=== PATIENT | male | born 1955 | race Caucasian/White ===

== ENCOUNTER 2017-07-16 22:36 | Observation (INO) | payer MEDICARE, OTHER ==
[~2017-07-16] VITALS: Ht 175.3 cm; Wt 67.0 kg
[2017-07-16 22:37] VITALS: BP 125/72; PULSE 75; RESP 16; TEMP 97.8; O2SAT 99
[2017-07-16] MEDS ORDERED: METF1000 PO (22:59)
--- NOTE | 2017-07-16 23:11 | PD ---
HPI Chief Complaint: Edema Time Seen by Provider: 23:11 Travel History International Travel<30 days: No Contact w/Intl Traveler<30days: No Traveled to known affect area: No History of Present Illness HPI 61-year-old male came to the emergency room for bilateral swelling of his legs called the right is worse than the left. As per him this has been going on for past 3 days. Patient says that this is also associated with some tingling of both his feet. He has history of diabetes and has had peripheral neuropathy for which he was put on gabapentin. Currently does not have a primary care and is not taking the gabapentin. He is only on metformin. No history of fever or chills. No history of shortness of breath. Patient is a heavy smoker and has history of COPD. Vital signs were stable. No past history of DVT or PE. Patient does have history of coronary artery disease and had a stent put in 3-4 years ago. He takes 1 baby aspirin every day. PFSH Past Medical History Narrative Medical List of his past medical, surgical, social and family history is reviewed from the nursing note. Cardiac Catheterization: Yes (cardiac stents) COPD: Yes Diabetes: Yes Patient Takes Glucophage: No (07/14/2017 0900) Diminished Hearing: No Medical other: Yes (neuropathy) Tetanus Vaccination: Unknown Influenza Vaccination: No Social History Alcohol Use: No Tobacco Use: Yes Substance Use: No Allergies-Medications (Allergen,Severity, Reaction): Coded Allergies: No Known Allergies (Verified , 07/16/17) Comments No known drug allergies. Reported Meds & Prescriptions Reported Meds & Active Scripts Active Narrative Medication List of his home medications reviewed from the nursing note. Review of Systems Except as stated in HPI: all other systems reviewed are Neg Physical Exam Narrative GENERAL: Awake, alert, mild distress SKIN: Focused skin assessment warm/dry. HEAD: Atraumatic. Normocephalic. EYES: Pupils equal and round. No scleral icterus. No injection or drainage. ENT: No nasal bleeding or discharge. Mucous membranes pink and moist. NECK: Trachea midline. No JVD. CARDIOVASCULAR: Regular rate and rhythm. No murmur appreciated. RESPIRATORY: No accessory muscle use. Coarse breath sounds bilaterally with end expiratory wheeze. GASTROINTESTINAL: Abdomen soft, non-tender, nondistended. Hepatic and splenic margins not palpable. MUSCULOSKELETAL: No obvious deformities. No clubbing. No cyanosis. Right 1+ leg edema midshin and distal up to the feet. NEUROLOGICAL: Awake and alert. No obvious cranial nerve deficits. Motor grossly within normal limits. Normal speech. PSYCHIATRIC: Appropriate mood and affect; insight and judgment normal. Data Data Last Documented VS Orders Orders Complete Blood Count With Diff (07/16/17 23:14) Basic Metabolic Panel (Bmp) (07/16/17 23:14) Prothrombin Time / Inr (Pt) (07/16/17 23:14) Troponin I (07/16/17 23:14) Electrocardiogram (07/16/17 ) Heavy Truck Driver / Telemetry SMITH.Q8H (07/16/17 23:14) Us Leg Venous Doppler Bilat (07/16/17 ) Albuterol-Ipratropium Neb (Duoneb Neb) (07/16/17 23:30) B-Type Natriuretic Peptide (07/17/17 00:15) Chest, Single Ap (07/17/17 ) Insulin Human Regular Inj (Novolin R Inj (07/17/17 00:30) Blood Glucose (07/17/17 00:26) Insulin Human Regular Inj (Novolin R Inj (07/17/17 00:45) Admit Order (Ed Use Only) (07/17/17 01:18) Labs Laboratory Tests Test 07/16/17 23:35 07/17/17 00:25 White Blood Count 6.9 TH/MM3 Red Blood Count 4.46 MIL/MM3 Hemoglobin 13.3 GM/DL Hematocrit 37.4 % Mean Corpuscular Volume 84.0 FL Mean Corpuscular Hemoglobin 29.9 PG Mean Corpuscular Hemoglobin Concent 35.6 % Red Cell Distribution Width 13.4 % Platelet Count 145 TH/MM3 Mean Platelet Volume 8.0 FL Neutrophils (%) (Auto) 47.0 % Lymphocytes (%) (Auto) 42.8 % Monocytes (%) (Auto) 6.2 % Eosinophils (%) (Auto) 2.6 % Basophils (%) (Auto) 1.4 % Neutrophils # (Auto) 3.2 TH/MM3 Lymphocytes # (Auto) 2.9 TH/MM3 Monocytes # (Auto) 0.4 TH/MM3 Eosinophils # (Auto) 0.2 TH/MM3 Basophils # (Auto) 0.1 TH/MM3 CBC Comment DIFF FINAL Differential Comment Prothrombin Time 11.4 SEC Prothromb Time International Ratio 1.0 RATIO Blood Urea Nitrogen 8 MG/DL Creatinine 0.81 MG/DL Random Glucose 336 MG/DL Calcium Level 8.4 MG/DL Sodium Level 138 MEQ/L Potassium Level 4.0 MEQ/L Chloride Level 101 MEQ/L Carbon Dioxide Level 28.3 MEQ/L Anion Gap 9 MEQ/L Estimat Glomerular Filtration Rate 97 ML/MIN Troponin I 0.06 NG/ML B-Type Natriuretic Peptide 122 PG/ML MDM Medical Decision Making Medical Screen Exam Complete: Yes Emergency Medical Condition: Yes Medical Record Reviewed: Yes Interpretation(s) Twelve-lead EKG was reviewed by me. Normal sinus rhythm, normal axis, lateral T wave inversions. Heart rate of 71 bpm. Differential Diagnosis Congestive heart failure, DVT, dependent edema Narrative Course 11:24 PM awaiting for the blood test and ultrasound to be done and resulted. I have ordered 2 DuoNeb's for the patient. 12:18 AM blood test results of back. Patient's troponin is mildly elevated. Blood sugar is elevated as well. I have ordered 10 units of subcutaneous insulin. I have ordered a chest x-ray as well. Awaiting for the chest x-ray and the ultrasound to be done and resulted. Patient needs to be hospitalized based on the elevated troponin alone. Awaiting for the hospitalist to call back. Patient was made aware of this. He is in agreement. Procedures EKG Prior to Arrival: No Diagnosis Primary Impression: Shortness of breath Additional Impressions: Elevated troponin I level Hyperglycemia Admitting Information Admitting Physician Requests: Admit Scripts Carefine [place] 31G X 8 mm (Carefine [place] 31G X 8 mm) 31 Gauge X 5/ 16" Mis BOX .ROUTE DIRECTED for Blood Sugar Management, #1 0 Refills Prov: Eusebio Perera MD 07/19/17 [employer] Insulin Syringes/ 31G X 5/16" 0.5 ml ([employer] Insulin Syringes/ 31G X 5/ 16" 0.5 ml) 31 Gauge X 5/16" Mis BOX .ROUTE DIRECTED for Blood Sugar Management, #180 Prov: Eusebio Perera MD 07/19/17 Blood Glucose Monitoring Supply (Trueresult Blood Glucose) System Kit KIT .ROUTE DIRECTED for Blood Sugar Management, #1 0 Refills Prov: Eusebio Perera MD 07/19/17 Blood Glucose Monitoring W/Device (Glucocom Blood Glucose Mo W/Device) 1 Kit Kit KIT .ROUTE DIRECTED for Blood Sugar Management, #1 Prov: Eusebio Perera MD 07/19/17 Glucocom Test Strips (Glucocom Test Strips) 1 Marilee Marilee EA .ROUTE DIRECTED for Blood Sugar Management, #180 Prov: Eusebio Perera MD 07/19/17 Insulin Human Isophane-Regular 70-30 Inj (Novolin 70-30 Inj) 1,000 Unit/10 Ml Vial 10 UNITS SQ BID@ for Blood Sugar Management, #60 INJECTION 11 Refills Prov: Eusebio Perera MD 07/19/[address] (Adult Aspirin EC Low Strength) 81 Mg Tabec 81 MG PO DAILY for Prevent Blood Clot, #30 TAB Prov: Eusebio Perera MD 07/19/17 Lisinopril (Lisinopril) 10 Mg Tab 10 MG PO DAILY for Blood Pressure Management, #30 TAB 11 Refills Prov: Eusebio Peerra MD 07/19/17 Pravastatin (Pravachol) 40 Mg Tab 40 MG PO DAILY for Cholesterol Management, #30 TAB 11 Refills Prov: Eusebio Perera MD 07/19/17 Metformin (Metformin) 1,000 Mg Tab 1000 MG PO BIDPC for Blood Sugar Management, #60 TAB 11 Refills With meals Prov: Eusebio Perera MD 07/19/17 Christie Jorgensen MD Jul 16, 2017 23:11
[2017-07-16 23:46] LABS: AUTOMATED NEUTROPHIL # 3.2 TH/MM3 (1.8-7.7); BASOPHIL # 0.1 TH/MM3 (0-0.2); BASOPHIL % 1.4 % (0.0-2.0); EOSINOPHIL # 0.2 TH/MM3 (0-0.4); EOSINOPHIL % 2.6 % (0.0-4.0); HEMATOCRIT 37.4 % (39.0-51.0); HEMO FLAGS DIFF FINAL; LYMPH % 42.8 % (9.0-44.0); LYMPHOCYTE # 2.9 TH/MM3 (1.0-4.8); MEAN CORPUSCULAR HEMOGLOBIN 29.9 PG (27.0-34.0); MEAN CORPUSCULAR HGB CONC 35.6 % (32.0-36.0); MONO % 6.2 % (0.0-8.0); PLATELET COUNT 145 TH/MM3 (150-450); RED BLOOD COUNT 4.46 MIL/MM3 (4.50-5.90); RED CELL DISTRIBUTION WIDTH 13.4 % (11.6-17.2); WHITE BLOOD COUNT 6.9 TH/MM3 (4.0-11.0)
[2017-07-16 23:53] LABS: PROTHROMBIN TIME - PATIENT 11.4 SEC (9.8-11.6)
[2017-07-17] VITALS (8 sets, daily range): BP systolic 102–153; BP diastolic 51–84; PULSE 68–93; RESP 16–18; TEMP 96.5–98.7; O2SAT 95–100
[2017-07-17] MEDS: RESP: ALBUTEROL 2.5 MG/IPRATROPIUM 0.5 MG NEB (SCH) INH (00:02)
[2017-07-17 00:08] LABS: BICARBONATE 28.3 MEQ/L (21.0-32.0)
[2017-07-17] MEDS ORDERED: INSULIN HUMAN REGULAR 1,000 UNITS/10 ML VIAL SQ ONE ×2 (00:30→00:45)
--- NOTE | 2017-07-17 00:35 | RADRPT ---
EXAM DATE/TIME: 07/17/2017 00:27 [facility] COMPARISON: No previous studies available for comparison. INDICATIONS : Shortness of breath. MEDICAL HISTORY : Chronic obstructive pulmonary disease. Diabetes mellitus type II. SURGICAL HISTORY : Cardiac stent. ENCOUNTER: Initial ACUITY: 3 weeks PAIN SCORE: 0/10 LOCATION: Bilateral chest FINDINGS: A single view of the chest demonstrates the lungs to be symmetrically aerated without evidence of mas s, infiltrate or effusion. The cardiomediastinal contours are unremarkable. Osseous structures are intact. CONCLUSION: No acute disease. Hilton Egan MD on July 17, 2017 at 0:33 Board Certified Radiologist. This report was verified electronically.
--- NOTE | 2017-07-17 01:12 | RADRPT ---
EXAM DATE/TIME: 07/17/2017 00:48 [facility] COMPARISON: No previous studies available for comparison. INDICATIONS : Bilateral leg swelling and pain. MEDICAL HISTORY : Chronic obstructive pulmonary disease. Coronary artery disease. Peripheral neuropathy. Diabetes. An ticoagulant therapy. SURGICAL HISTORY : Coronary artery stent. ENCOUNTER: Initial ACUITY: 3 days PAIN SCORE: 4/10 LOCATION: Bilateral legs. TECHNIQUE: Venous ultrasound of the left and right leg was performed from the inguinal ligament to the proximal calf. Real-time, color Doppler and spectral tracing, compression and augmentation techniques were us ed. FINDINGS: RIGHT LEG: There is normal compressibility of the deep venous system from the inguinal region to the proximal ca lf. No echogenic clot is seen in the lumen of the common femoral, femoral, popliteal, and posterior tibial veins. There is a normal response of the venous system to proximal and distal augmentation an d respiration. LEFT LEG: There is normal compressibility of the deep venous system from the inguinal region to the proximal ca lf. No echogenic clot is seen in the lumen of the common femoral, femoral, popliteal, and posterior tibial veins. There is a normal response of the venous system to proximal and distal augmentation an d respiration. CONCLUSION: Normal examination. Hilton Egan MD on July 17, 2017 at 1:10 Board Certified Radiologist. This report was verified electronically.
[2017-07-17] MEDS ORDERED: SENNOSIDES 8.6 MG TAB PO PRN (01:30)
[2017-07-17] MEDS ORDERED: LACTULOSE SYRUP 20 GM/30 ML CUP PO PRN (01:30)
[2017-07-17] MEDS ORDERED: ONDANSETRON HCL 4 MG/2 ML VIAL IVP PRN (01:30)
[2017-07-17] MEDS ORDERED: RESP: ALBUTEROL 2.5 MG/IPRATROPIUM 0.5 MG NEB (PRN) NEB (01:30)
[2017-07-17] MEDS ORDERED: ACETAMINOPHEN/HYDROcodone 325 MG/5 MG TAB PO PRN (01:30)
[2017-07-17] MEDS ORDERED: BISACODYL 10 MG SUPP RECTAL PRN (01:30)
[2017-07-17] MEDS ORDERED: NITROGLYCERIN 2% OINT 1 GM PACKET TOPICAL PRN (01:30)
[2017-07-17] MEDS ORDERED: GLUCAGON 1 MG/ML VIAL OTHER PRN (01:30)
[2017-07-17] MEDS ORDERED: MAGNESIUM HYDROXIDE SUSP 30 ML CUP PO PRN (01:30)
[2017-07-17] MEDS ORDERED: DEXTROSE 50% IN WATER 50 ML VIAL(D50) IV PRN (01:30)
[2017-07-17] MEDS ORDERED: MORPHINE SULFATE 4 MG/ML INJ IV PRN (01:30)
[2017-07-17] MEDS ORDERED: SODIUM CHLORIDE 0.9% FLUSH 10 ML FLUSH IV FLUSH PRN (01:30)
--- NOTE | 2017-07-17 02:33 | HHI.HP ---
[facility] No Primary Care Physician Admission Diagnosis DYSPNEA,ELEVATED TROP Diagnoses: (1) Lower extremity edema Diagnosis: Principal (2) Elevated troponin Diagnosis: Principal (3) HTN (hypertension) Diagnosis: Principal (4) COPD (chronic obstructive pulmonary disease) Diagnosis: Principal (5) Thrombocytopenia Diagnosis: Principal (6) Tobacco abuse Diagnosis: Principal Travel History International Travel<30 Days: No Contact w/Intl Traveler <30 Da: No Traveled to Known Affected Are: No History of Present Illness This is a 61-year-old male with a PMH of HTN, CAD, COPD, DM, Peripheral Neuropathy and Tobacco Abuse who presented to the ER with complaints of bilateral lower extremity edema and intermittent SOB x3 days. Denies fever, chills, cough or sick contacts. No c/o chest pain. Denies h/o similar symptoms in the past. On arrival, BP 125/72, HR 75, O2 sat 99% on RA, Afebrile. CBC essentially unremarkable except for platelets 145, no previous labs for comparison. Chemistry essentially unremarkable except for BS 336. Troponin 0.06. BNP 122. 1.0. CXR with no acute findings. LE Doppler negative for DVT. Noted to have mild wheezing while in ER, s/p DuoNeb w/ improvement. Review of Systems Except as stated in HPI: all other systems reviewed are Neg ROS: 14 point review of systems otherwise negative. Past Family Social History Past Medical History PMH: HTN, CAD, COPD, DM, Peripheral Neuropathy and Tobacco Abuse Past Surgical History PAST SURGICAL HISTORY: Cardiac stent Allergies: Coded Allergies: No Known Allergies (Verified , 07/16/17) Family History PAST FAMILY HISTORY: Reviewed, positive for DM. Social History PAST SOCIAL HISTORY: Negative for alcohol or drugs. Positive for tobacco. Physical Exam Vital Signs Vital Signs Date Time Temp Pulse Resp B/P (MAP) Pulse Ox O2 Delivery O2 Flow Rate FiO2 07/16/17 22:37 97.8 75 16 125/72 (89) 99 Room Air Physical Exam PE: GENERAL: Middle-aged male in no acute distress. HEENT: PERRLA, EOMI. No scleral icterus or conjunctival pallor. No lid lag or facial droop. CARDIOVASCULAR: Regular rate and rhythm. No obvious murmurs to auscultation. No chest tenderness to palpation. RESPIRATORY: No obvious rhonchi or wheezing. Clear to auscultation. Breath sounds equal bilaterally. GASTROINTESTINAL: Abdomen soft, non-tender, nondistended. BS normal. MUSCULOSKELETAL: Extremities without clubbing, cyanosis. Bilateral lower extremity edema, right greater than left. No obvious deformities. NEUROLOGICAL: Awake, alert and oriented x4. No focal neurologic deficits. Moving both upper and lower extremities spontaneously. Laboratory Laboratory Tests Test 07/16/17 23:35 07/17/17 00:25 White Blood Count 6.9 Red Blood Count 4.46 Hemoglobin 13.3 Hematocrit 37.4 Mean Corpuscular Volume 84.0 Mean Corpuscular Hemoglobin 29.9 Mean Corpuscular Hemoglobin Concent 35.6 Red Cell Distribution Width 13.4 Platelet Count 145 Mean Platelet Volume 8.0 Neutrophils (%) (Auto) 47.0 Lymphocytes (%) (Auto) 42.8 Monocytes (%) (Auto) 6.2 Eosinophils (%) (Auto) 2.6 Basophils (%) (Auto) 1.4 Neutrophils # (Auto) 3.2 Lymphocytes # (Auto) 2.9 Monocytes # (Auto) 0.4 Eosinophils # (Auto) 0.2 Basophils # (Auto) 0.1 CBC Comment DIFF FINAL Differential Comment Prothrombin Time 11.4 Prothromb Time International Ratio 1.0 Blood Urea Nitrogen 8 Creatinine 0.81 Random Glucose 336 Calcium Level 8.4 Sodium Level 138 Potassium Level 4.0 Chloride Level 101 Carbon Dioxide Level 28.3 Anion Gap 9 Estimat Glomerular Filtration Rate 97 Troponin I 0.06 B-Type Natriuretic Peptide 122 Result Diagram: 07/16/17233407/16/172334 Caprini VTE Risk Assessment Caprini VTE Risk Assessment: No/Low Risk (score <= 1) Caprini Risk Assessment Model Point Value = 1 Point Value = 2 Point Value = 3 Point Value = 5 Age 41-60 Minor surgery BMI > 25 kg/m2 Swollen legs Varicose veins or History of unexplained or recurrent spontaneous Oral contraceptives or hormone replacement Sepsis (< 1 month) Serious lung disease, including pneumonia (< 1 month) Abnormal pulmonary function Acute myocardial infarction Congestive heart failure (< 1 month) History of inflammatory bowel disease Medical patient at bed rest Age 61-74 Arthroscopic surgery Major open surgery (> 45 min) Laparoscopic surgery (> 45 min) Malignancy Confined to bed (> 72 hours) Immobilizing plaster cast Central venous access Age >= 75 History of VTE Family history of VTE Factor V Leiden Prothrombin [id number] Lupus anticoagulant Anticardiolipin antibodies Elevated serum homocysteine Heparin-induced thrombocytopenia Other congenital or acquired thrombophilia Stroke (< 1 month) Elective arthroplasty Hip, pelvis, or leg fracture Acute spinal cord injury (< 1 month) Prophylaxis Regimen Total Risk Factor Score Risk Level Prophylaxis Regimen 0-1 Low Early ambulation 2 Moderate Order ONE of the following: *Sequential Compression Device (SCD) *Heparin 5000 units SQ BID 3-4 Higher Order ONE of the following medications: *Heparin 5000 units SQ TID *Enoxaparin/Lovenox 40 mg SQ daily (WT < 150 kg, CrCl > 30 mL/min) *Enoxaparin/Lovenox 30 mg SQ daily (WT < 150 kg, CrCl > 10-29 mL/min) *Enoxaparin/Lovenox 30 mg SQ BID (WT < 150 kg, CrCl > 30 mL/min) AND/OR *Sequential Compression Device (SCD) 5 or more Highest Order ONE of the following medications: *Heparin 5000 units SQ TID (Preferred with Epidurals) *Enoxaparin/Lovenox 40 mg SQ daily (WT < 150 kg, CrCl > 30 mL/min) *Enoxaparin/Lovenox 30 mg SQ daily (WT < 150 kg, CrCl > 10-29 mL/min) *Enoxaparin/Lovenox 30 mg SQ BID (WT < 150 kg, CrCl > 30 mL/min) AND *Sequential Compression Device (SCD) Assessment and Plan Problem List: (1) Lower extremity edema ICD Code: R60.0 - Localized edema (2) Elevated troponin ICD Code: R74.8 - Abnormal levels of other serum enzymes (3) COPD (chronic obstructive pulmonary disease) ICD Code: J44.9 - Chronic obstructive pulmonary disease, unspecified (4) HTN (hypertension) ICD Code: I10 - Essential (primary) hypertension (5) Thrombocytopenia ICD Code: D69.6 - Thrombocytopenia, unspecified (6) Tobacco abuse ICD Code: Z72.0 - Tobacco use Assessment and Plan A/P: 1. LE Edema: new onset, right greater than left, no injury/trauma. Doppler LE negative for DVT, images reviewed by me. BNP 122. CXR w/ no acute findings , images reviewed by me. Check Echo to eval for systolic function. 2. Elevated Trop: Trop 0.06, EKG w no acute ischemia, no c/o chest pain. Check serial cardiac enzymes, Lipid Profile, Hgb A1c, start ASA, Statin. NTG/ Morphine prn if needed. 3. COPD: Chronic Respiratory Failure. Mild. +wheezing on arrival, s/p DuoNeb , now resolved. DuoNeb prn. CXR w/ no acute findings as above. 4. HTN: Controlled. BP 120's. Will monitor BP. 5. Thrombocytopenia: Platelets 145, no previous labs for comparison. No active bleeding. Recheck labs in am. 6. DM: Uncontrolled. BS 336. Sliding scale w/ Accu-Cheks. Hold Metformin for possible cardiac intervention. Check Hgb A1c. 7. DVT Prophylaxis: Heparin sq 8. Social work for d/c planning as needed. 9. Case discussed w/ ER physician at length. Helen Browne MD Jul 17, 2017 02:33
[2017-07-17] MEDS: INSULIN ASPART SUPPLEMENTAL SCALE SQ SCH ×4 (07:00→20:01)
[2017-07-17 07:22] LABS: AUTOMATED NEUTROPHIL # 4.4 TH/MM3 (1.8-7.7); BASOPHIL # 0.1 TH/MM3 (0-0.2); BASOPHIL % 1.2 % (0.0-2.0); EOSINOPHIL # 0.1 TH/MM3 (0-0.4); EOSINOPHIL % 1.8 % (0.0-4.0); HEMATOCRIT 36.8 % (39.0-51.0); HEMO FLAGS DIFF FINAL; LYMPH % 38.5 % (9.0-44.0); LYMPHOCYTE # 3.2 TH/MM3 (1.0-4.8); MEAN CELL VOLUME 84.3 FL (80.0-100.0); MEAN CORPUSCULAR HEMOGLOBIN 29.1 PG (27.0-34.0); MEAN CORPUSCULAR HGB CONC 34.6 % (32.0-36.0); MONO % 5.8 % (0.0-8.0); NEUT % 52.7 % (16.0-70.0); PLATELET COUNT 151 TH/MM3 (150-450); RED BLOOD COUNT 4.36 MIL/MM3 (4.50-5.90); RED CELL DISTRIBUTION WIDTH 13.5 % (11.6-17.2); WHITE BLOOD COUNT 8.3 TH/MM3 (4.0-11.0)
[2017-07-17 07:36] LABS: ALT (GPT) 10 U/L (12-78); ANION GAP 6 MEQ/L (5-15); AST (GOT) 9 U/L (15-37); BLOOD UREA NITROGEN 8 MG/DL (7-18); CHLORIDE 105 MEQ/L (98-107); GLOMERULAR FILTRATION RATE 110 ML/MIN (>89); POTASSIUM 3.2 MEQ/L (3.5-5.1); SODIUM (NA) 142 MEQ/L (136-145)
[2017-07-17 07:40] LABS: ALKALINE PHOSPHATASE 77 U/L (45-117); LDL CHOLESTEROL 99 MG/DL (0-99); TOTAL BILIRUBIN ADULT 0.6 MG/DL (0.2-1.0)
[2017-07-17] MEDS: DOCUSATE SODIUM 50 MG/SENNA 8.6 MG TAB PO SCH ×2 (08:01→19:50)
[2017-07-17] MEDS: PRAVASTATIN SOD 40 MG TAB PO SCH (08:01)
[2017-07-17] MEDS: ASPIRIN EC 81 MG TABEC PO SCH (08:01)
[2017-07-17] MEDS: ACETAMINOPHEN 325 MG TAB PO PRN ×2 (08:01→16:02)
[2017-07-17] MEDS: SODIUM CHLORIDE 0.9% FLUSH 10 ML FLUSH IV FLUSH SCH ×2 (08:02→19:51)
[2017-07-17] MEDS: HEPARIN SODIUM - SQ 10,000 UNITS/ML VIAL SQ SCH ×2 (08:02→19:51)
--- NOTE | 2017-07-17 09:06 | EKG ---
Date Performed: 07/16/2017 Time Performed: 23:28:11 PTAGE: 61 years EKG: Sinus rhythm ABNORMAL QRS-T ANGLE ABNORMAL ECG NO PREVIOUS TRACING DOCTOR: Martin Schroeder Interpretating Date/Time 07/17/2017 09:04:46
--- NOTE | 2017-07-17 09:45 | HHI.PR ---
Subjective Remarks No acute events overnight. Afebrile, vital signs stable. Patient states the shortness of breath has resolved. Continues to complain of right lower extremity pain and edema. Objective Vitals Vital Signs Date Time Temp Pulse Resp B/P (MAP) Pulse Ox O2 Delivery O2 Flow Rate FiO2 07/17/17 08:00 97.7 78 17 131/73 (92) 99 07/17/17 06:53 82 07/17/17 04:00 96.5 78 16 102/51 (68) 95 07/17/17 02:29 97.9 93 18 151/84 (106) 100 07/16/17 22:37 97.8 75 16 125/72 (89) 99 Room Air Result Diagram: 07/17/17 0645 07/17/17 0645 Objective Remarks GENERAL: Middle-aged male in no acute distress. HEENT: PERRLA, EOMI. No scleral icterus or conjunctival pallor. No lid lag or facial droop. CARDIOVASCULAR: Regular rate and rhythm. No obvious murmurs to auscultation. No chest tenderness to palpation. RESPIRATORY: No obvious rhonchi or wheezing. Clear to auscultation. Breath sounds equal bilaterally. GASTROINTESTINAL: Abdomen soft, non-tender, nondistended. BS normal. MUSCULOSKELETAL: Extremities without clubbing, cyanosis. Bilateral lower extremity edema, right greater than left. No obvious deformities. NEUROLOGICAL: Awake, alert and oriented x4. No focal neurologic deficits. Moving both upper and lower extremities spontaneously. A/P Problem List: (1) Lower extremity edema ICD Code: R60.0 - Localized edema (2) Elevated troponin ICD Code: R74.8 - Abnormal levels of other serum enzymes (3) COPD (chronic obstructive pulmonary disease) ICD Code: J44.9 - Chronic obstructive pulmonary disease, unspecified (4) HTN (hypertension) ICD Code: I10 - Essential (primary) hypertension (5) Thrombocytopenia ICD Code: D69.6 - Thrombocytopenia, unspecified (6) Tobacco abuse ICD Code: Z72.0 - Tobacco use Assessment and Plan 1. LE Edema: new onset, right greater than left, no injury/trauma. Doppler LE negative for DVT. BNP 122. CXR w/ no acute findings. Check Echo to eval for systolic function. 2. Elevated Trop: Trop 0.06 x 2, EKG w no acute ischemia, no c/o chest pain. 3. COPD: Stable. SOB resolved with DuoNebs. Continue DuoNebs. Smoking cessation counseling provided. 4. HTN: Controlled. BP 120's. Will monitor BP. 5. Thrombocytopenia: Platelets 151 this am, no previous labs for comparison. No active bleeding. Follow. 6. DM: Uncontrolled. BS 336. Sliding scale w/ Accu-Cheks. Hold Metformin. Hgb A1c pending. 7. DVT Prophylaxis: Heparin sq 8. Social work for d/c planning as needed. Discharge Planning Pending results of Shayy Vargas MD R3 Jul 17, 2017 09:45
[2017-07-17 13:03] LABS: HEMOGLOBIN A1a 1.2 %; HEMOGLOBIN A1b 0.8 %; HEMOGLOBIN Ao 78.3 %; HEMOGLOBIN F 2.1 %; HEMOGLOBIN LA1C 2.4 %; HEMOGLOBIN P3 4.8 %
[2017-07-18 04:15] VITALS: BP 161/90; PULSE 72; RESP 18; TEMP 97.8; O2SAT 99
[2017-07-18] MEDS: INSULIN ASPART SUPPLEMENTAL SCALE SQ SCH ×4 (07:00→20:01)
[2017-07-18 07:54] LABS: AUTOMATED NEUTROPHIL # 2.8 TH/MM3 (1.8-7.7); BASOPHIL # 0.1 TH/MM3 (0-0.2); BASOPHIL % 1.4 % (0.0-2.0); EOSINOPHIL # 0.2 TH/MM3 (0-0.4); EOSINOPHIL % 3.1 % (0.0-4.0); HEMATOCRIT 38.2 % (39.0-51.0); HEMO FLAGS DIFF FINAL; LYMPH % 45.8 % (9.0-44.0); LYMPHOCYTE # 2.9 TH/MM3 (1.0-4.8); MEAN CELL VOLUME 84.1 FL (80.0-100.0); MEAN CORPUSCULAR HEMOGLOBIN 29.5 PG (27.0-34.0); MONO % 5.8 % (0.0-8.0); NEUT % 43.9 % (16.0-70.0); PLATELET COUNT 146 TH/MM3 (150-450); RED BLOOD COUNT 4.55 MIL/MM3 (4.50-5.90); RED CELL DISTRIBUTION WIDTH 13.7 % (11.6-17.2); WHITE BLOOD COUNT 6.4 TH/MM3 (4.0-11.0)
[2017-07-18 08:00] VITALS: BP 146/87; PULSE 65; PULSE 66; RESP 13; TEMP 98; O2SAT 99
[2017-07-18 08:11] LABS: BICARBONATE 27.6 MEQ/L (21.0-32.0); POTASSIUM 3.6 MEQ/L (3.5-5.1)
[2017-07-18] MEDS: PRAVASTATIN SOD 40 MG TAB PO SCH (08:36)
[2017-07-18] MEDS: HEPARIN SODIUM - SQ 10,000 UNITS/ML VIAL SQ SCH ×2 (08:36→19:52)
[2017-07-18] MEDS: ASPIRIN EC 81 MG TABEC PO SCH (08:36)
[2017-07-18] MEDS: DOCUSATE SODIUM 50 MG/SENNA 8.6 MG TAB PO SCH (08:36)
[2017-07-18] MEDS: SODIUM CHLORIDE 0.9% FLUSH 10 ML FLUSH IV FLUSH SCH ×2 (08:37→20:01)
[2017-07-18] MEDS ORDERED: PNEUMOCOCCAL POLYVALENT INJ 25 MCG/0.5 ML SYR IM ONE (10:00)
[2017-07-18 12:00] VITALS: BP 131/81; PULSE 76; RESP 17; TEMP 97; O2SAT 97
--- NOTE | 2017-07-18 12:38 | HHI.PR ---
Subjective Remarks Follow-up right lower extremity edema/medical noncompliance 07/18/17-patient seen and examined, reports significant improvement of right lower extremity swelling and edema. Denies any pain. A1c 10.6. BP slightly up Objective Vitals Vital Signs Date Time Temp Pulse Resp B/P (MAP) Pulse Ox O2 Delivery O2 Flow Rate FiO2 07/18/17 08:00 98.0 66 13 146/87 (106) 99 07/18/17 04:15 97.8 72 18 161/90 (113) 99 07/17/17 23:10 98.0 68 17 153/79 (103) 97 07/17/17 19:50 98.7 74 17 147/81 (103) 99 07/17/17 15:56 98.1 76 18 142/84 (103) 100 I/O 07/17/17 07/17/17 07/17/17 07/18/17 07/18/17 07/18/17 07:00 15:00 23:00 07:00 15:00 23:00 Intake Total 1080 ml 240 ml Balance 1080 ml 240 ml Intake Oral 1080 ml 240 ml # Voids 0 6 2 # Bowel Movements 0 0 Result Diagram: 07/18/1761907/18/[id number] Imaging GENERAL: NAD SKIN: Warm and dry. HEAD: Normocephalic. EYES: No scleral icterus. No injection or drainage. NECK: Supple, trachea midline. No JVD or lymphadenopathy. CARDIOVASCULAR: Regular rate and rhythm without murmurs, gallops, or rubs. RESPIRATORY: Breath sounds equal bilaterally. No accessory muscle use. GASTROINTESTINAL: Abdomen soft, non-tender, nondistended. MUSCULOSKELETAL: No cyanosis; RLE with Trace edema. BACK: Nontender without obvious deformity. No CVA tenderness. A/P Problem List: (1) Lower extremity edema ICD Code: R60.0 - Localized edema (2) Elevated troponin ICD Code: R74.8 - Abnormal levels of other serum enzymes (3) COPD (chronic obstructive pulmonary disease) ICD Code: J44.9 - Chronic obstructive pulmonary disease, unspecified (4) HTN (hypertension) ICD Code: I10 - Essential (primary) hypertension (5) Thrombocytopenia ICD Code: D69.6 - Thrombocytopenia, unspecified (6) Tobacco abuse ICD Code: Z72.0 - Tobacco use Assessment and Plan 61-year-old man with 1. LE Edema: new onset, right greater than left, no injury/trauma. Doppler LE negative for DVT. BNP 122. CXR w/ no acute findings. 2-D echo pending to evaluate for systolic function. 2. Elevated Trop: Trop 0.06 x 2, EKG w no acute ischemia, no c/o chest pain. 2-D echo pending 3. COPD: Stable. Continue DuoNebs. Smoking cessation counseling provided. 4. HTN: labile BP; start Lisinopril 10mg daily 5. Mild Thrombocytopenia: No active bleeding. Follow. 6. DM: Uncontrolled. Sliding scale w/ Accu-Cheks. Hold Metformin. Hgb A1c 10.6 therefore will start NPH 70/30 10 units BID. Will need patient follow-up with endocrinology. 7. DVT Prophylaxis: Heparin sq Eusebio Perera MD Jul 18, 2017 12:38
[2017-07-18] MEDS ORDERED: METOPROLOL TARTRATE 50 MG TAB PO SCH (12:45)
[2017-07-18] MEDS: LISINOPRIL 10 MG TAB PO SCH (13:00)
[2017-07-18 16:00] VITALS: BP 122/79; PULSE 86; RESP 17; TEMP 97.1; O2SAT 96
[2017-07-18] MEDS: INSULIN HUMAN NPH/R 70/30 1,000 UNITS/10 ML VIAL SQ SCH (16:25)
[2017-07-18 19:45] VITALS: BP 139/82; PULSE 74; RESP 17; TEMP 98.1; O2SAT 96
--- NOTE | 2017-07-18 20:26 | ECHRPT ---
Indication: CARDIOMYOPATHY CONCLUSIONS Normal left ventricular size. Wall thickness is normal. The left ventricular systolic function is low normal with an estimated ejection fraction in the rang e of 50- 55%. No atrial level shunt is demonstrated by color flow Doppler interrogation. The aortic root and proximal ascending aorta are not well visualized. [id number] mitral valve regurgitation. No mitral valve stenosis. No aortic valve regurgitation. No aortic valve stenosis. No tricuspid regurgitation. Normal estimated pulmonary pressures. The inferior vena cava was not well visualized. BP: 102 / 51 HR: 82 Rhythm: Sinus MEASUREMENTS (Male / Female) Normal Values Technical Quality:Fair DOPPLER AV Peak Velocity 82.7 cm/s AV Peak Gradient 2.7 mmHg AV Mean Gradient 2.0 mmHg AV Velocity Time Integral 16.6 cm LVOT Peak Velocity 65.4 cm/s LVOT Peak Gradient 1.7 mmHg LVOT Velocity Time Integral 11.4 cm Mitral E Point Velocity 71.6 cm/s Mitral A Point Velocity 61.2 cm/s Mitral E to A Ratio 1.2 LV E' Lateral Velocity 6.4 cm/s Mitral E to LV E' Lateral Ratio 11.1 LV E' Septal Velocity 7.3 cm/s Mitral E to LV E' Septal Ratio 9.8 PV Peak Velocity 103.0 cm/s PV Peak Gradient 4.2 mmHg FINDINGS LEFT VENTRICLE Normal left ventricular size. Wall thickness is normal. The left ventricular systolic function is low normal with an estimated ejection fraction in the rang e of 50- 55%. Left ventricular diastolic function parameters are normal. RIGHT VENTRICLE Normal right ventricular size and systolic function. LEFT ATRIUM The left atrial size is normal. RIGHT ATRIUM The right atrial size is normal. ATRIAL SEPTUM No atrial level shunt is demonstrated by color flow Doppler interrogation. AORTA The aortic root and proximal ascending aorta are not well visualized. MITRAL VALVE Structurally normal mitral valve. [id number] mitral valve regurgitation. No mitral valve stenosis. AORTIC VALVE Trileaflet aortic valve. No aortic valve regurgitation. No aortic valve stenosis. TRICUSPID VALVE Structurally normal tricuspid valve. No tricuspid regurgitation. Normal estimated pulmonary pressures. PULMONARY VALVE No pulmonary valve regurgitation or stenosis. VESSELS The inferior vena cava was not well visualized. PERICARDIUM No pericardial effusion. Tal Li MD, FACC, [facility] [place] (Electronically Signed) Final Date:18 July 2017 20:25
[2017-07-18 23:10] VITALS: BP 122/75; PULSE 77; RESP 17; TEMP 98.7; O2SAT 97
[2017-07-19 04:35] VITALS: BP 148/75; PULSE 71; RESP 16; TEMP 97.6; O2SAT 96
[2017-07-19] MEDS: INSULIN ASPART SUPPLEMENTAL SCALE SQ SCH ×2 (07:00→11:00)
[2017-07-19 08:00] VITALS: BP 149/88; PULSE 74; RESP 18; TEMP 97; O2SAT 97
[2017-07-19] MEDS: PRAVASTATIN SOD 40 MG TAB PO SCH (08:08)
[2017-07-19] MEDS: ASPIRIN EC 81 MG TABEC PO SCH (08:08)
[2017-07-19] MEDS: LISINOPRIL 10 MG TAB PO SCH (08:08)
[2017-07-19] MEDS: HEPARIN SODIUM - SQ 10,000 UNITS/ML VIAL SQ SCH (08:09)
[2017-07-19] MEDS: INSULIN HUMAN NPH/R 70/30 1,000 UNITS/10 ML VIAL SQ SCH (08:13)
[2017-07-19] MEDS: SODIUM CHLORIDE 0.9% FLUSH 10 ML FLUSH IV FLUSH SCH (08:13)
[2017-07-19 12:00] VITALS: BP 107/71; PULSE 74; RESP 18; TEMP 97.7; O2SAT 97
[2017-07-19] MEDS ORDERED: ASPI-99 PO (13:37)
[2017-07-19] MEDS ORDERED: NOVO7030P2 SQ (13:37)
[2017-07-19] MEDS ORDERED: PRAV40TA PO (13:37)
[2017-07-19] MEDS ORDERED: METF1000 PO (13:37)
[2017-07-19] MEDS ORDERED: LISI10TA3 PO (13:37)
[2017-07-19] MEDS ORDERED: INSU-118 (13:42)
[2017-07-19] MEDS ORDERED: GLUCTES12 (13:42)
[2017-07-19] MEDS ORDERED: GLUCKIT15 (13:42)
[2017-07-19] MEDS ORDERED: TRUERESULT BLOSYSTEM (13:42)
[2017-07-19] MEDS ORDERED: INSU-101 (13:42)
--- NOTE | 2017-07-19 14:00 | HHI.PR ---
Subjective Remarks Follow-up right lower extremity edema/medical noncompliance 07/18/17-patient seen and examined, reports significant improvement of right lower extremity swelling and edema. Denies any pain. A1c 10.6. BP slightly up 07/19/17-patient seen and examined, denies any chest or shortness of breath. Objective Vitals Vital Signs Date Time Temp Pulse Resp B/P (MAP) Pulse Ox O2 Delivery O2 Flow Rate FiO2 07/19/17 12:00 97.7 74 18 107/71 (83) 97 07/19/17 08:00 97.0 74 18 149/88 (108) 97 07/19/17 04:35 97.6 71 16 148/75 (99) 96 07/18/17 23:10 98.7 77 17 122/75 (91) 97 07/18/17 19:45 98.1 74 17 139/82 (101) 96 07/18/17 16:00 97.1 86 17 122/79 (93) 96 I/O 07/18/17 07/18/17 07/18/17 07/19/17 07/19/17 07/19/17 07:00 15:00 23:00 07:00 15:00 23:00 Intake Total 240 ml 480 ml 480 ml 720 ml Output Total 650 ml Balance 240 ml -170 ml 480 ml 720 ml Intake Oral 240 ml 480 ml 480 ml 720 ml Output Urine Total 650 ml # Voids 2 3 2 2 # Bowel Movements 0 0 0 Result Diagram: 07/18/17 0620 07/18/17 0620 Imaging Last Impressions Chest X-Ray 07/17/17 0000 Signed Impressions: Service Date/Time: Monday, July 17, 2017 00:27 - CONCLUSION: No acute disease. Hilton Egan MD Lower Extremity Ultrasound 07/16/17 0000 Signed Impressions: Service Date/Time: Monday, July 17, 2017 00:48 - CONCLUSION: Normal examination. Hilton Egan MD Objective Remarks GENERAL: NAD SKIN: Warm and dry. HEAD: Normocephalic. EYES: No scleral icterus. No injection or drainage. NECK: Supple, trachea midline. No JVD or lymphadenopathy. CARDIOVASCULAR: Regular rate and rhythm without murmurs, gallops, or rubs. RESPIRATORY: Breath sounds equal bilaterally. No accessory muscle use. GASTROINTESTINAL: Abdomen soft, non-tender, nondistended. MUSCULOSKELETAL: No cyanosis, or edema. BACK: Nontender without obvious deformity. No CVA tenderness. A/P Problem List: (1) Lower extremity edema ICD Code: R60.0 - Localized edema Status: Resolved (2) Elevated troponin ICD Code: R74.8 - Abnormal levels of other serum enzymes (3) COPD (chronic obstructive pulmonary disease) ICD Code: J44.9 - Chronic obstructive pulmonary disease, unspecified (4) HTN (hypertension) ICD Code: I10 - Essential (primary) hypertension (5) Thrombocytopenia ICD Code: D69.6 - Thrombocytopenia, unspecified (6) Tobacco abuse ICD Code: Z72.0 - Tobacco use (7) Diabetes mellitus, type II ICD Code: E11.9 - Type 2 diabetes mellitus without complications Assessment and Plan 61-year-old man with 1. LE Edema: new onset, right greater than left, no injury/trauma. Doppler LE negative for DVT. BNP 122. CXR w/ no acute findings. 2-D echo EF 50-55% 2. Elevated Trop: Trop 0.06 x 2, EKG w no acute ischemia, no c/o chest pain. 2-D echo 50-60% 3. COPD: Stable. Continue DuoNebs. Smoking cessation counseling provided. 4. HTN: Currently on Lisinopril 10mg daily 5. Mild Thrombocytopenia: No active bleeding. Follow. 6. DM II: Sliding scale w/ Accu-Cheks. Resume Metformin. Hgb A1c 10.6 , continue NPH 70/30 10 units BID. Will need patient follow-up with endocrinology. 7. DVT Prophylaxis: Heparin sq Discharge Planning Discharge patient to home Condition on discharge: Improved Regular Diet as tolerated Ad Mary activity Rx written: See EMR Follow-up with primary care physician in one week Eusebio Perera MD Jul 19, 2017 14:00
== END 2017-07-19 17:20 | disposition home or self-care (01) ==
LOC: NEPD 22:36 → NEDA 07-17 01:20 → N06A 07-17 02:18
PROVIDERS: ADMIT Hospitalist; ATTEND Hospitalist
DX: R60.0 Localized edema (principal); R74.8 Abnormal levels of other serum enzymes; J44.9 Chronic obstructive pulmonary disease, unspecified; I10 Essential (primary) hypertension; D69.6 Thrombocytopenia, unspecified; J96.10 Chronic respiratory failure, unspecified whether with hypoxia or hypercapnia; I25.10 Atherosclerotic heart disease of native coronary artery without angina pectoris; E11.65 Type 2 diabetes mellitus with hyperglycemia; E11.42 Type 2 diabetes mellitus with diabetic polyneuropathy; F17.200 Nicotine dependence, unspecified, uncomplicated; Z79.4 Long term (current) use of insulin; Z91.19 Patient's noncompliance with other medical treatment and regimen; Z79.82 Long term (current) use of aspirin; Z95.5 Presence of coronary angioplasty implant and graft; Z23 Encounter for immunization
CPT/HCPCS: 71010; 80048; 80053; 80061; 82948; 83036; 83880; 84484; 85025; 85610; 90732; 93005; 93306; 93970; 94640; 94664; 96372; 99285; G0378; J1644; J1815

== ENCOUNTER 2017-07-23 07:05 | Emergency (ER) | payer SELFPAY ==
[~2017-07-23] VITALS: Ht 175.3 cm; Wt 65.0 kg
[~2017-07-23 07:05] MED LIST: ASPI-99 PO; GLUCKIT15; GLUCTES12; INSU-101; INSU-118; LISI10TA3 PO; METF1000 PO; NOVO7030P2 SQ; PRAV40TA PO; TRUERESULT BLOSYSTEM
[2017-07-23 07:07] VITALS: BP 129/70; PULSE 79; RESP 20; TEMP 98.5; O2SAT 99
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
[2017-07-23] MEDS ORDERED: SODIUM CHLORIDE 0.9% FLUSH 10 ML FLUSH IVF PRN (07:45)
[2017-07-23 08:29] VITALS: RESP 16; O2SAT 97
[2017-07-23 08:30] VITALS: BP 119/72; PULSE 76; RESP 16; O2SAT 98
--- NOTE | 2017-07-23 08:39 | RADRPT ---
EXAM DATE/TIME: 07/23/2017 08:04 [facility] COMPARISON: CHEST SINGLE AP, July 17, 2017, 0:27. INDICATIONS : Chest pain. MEDICAL HISTORY : Chronic obstructive pulmonary disease. Diabetes mellitus type II. SURGICAL HISTORY : Cardiac stent. ENCOUNTER: Initial ACUITY: 1 day PAIN SCORE: 2/10 LOCATION: Bilateral chest FINDINGS: Portable AP view of the chest demonstrates a normal-sized cardiac silhouette. No effusion, consolidat ion, or pneumothorax is visualized. The bones and soft tissues demonstrate no acute abnormality. CONCLUSION: No acute cardiopulmonary abnormality is identified. Roger Lubin MD on July 23, 2017 at 8:37 Board Certified Radiologist. This report was verified electronically.
[2017-07-23 08:42] LABS: BASOPHIL # 0.1 TH/MM3 (0-0.2); BASOPHIL % 1.3 % (0.0-2.0); EOSINOPHIL # 0.2 TH/MM3 (0-0.4); EOSINOPHIL % 3.3 % (0.0-4.0); HEMATOCRIT 37.2 % (39.0-51.0); HEMO FLAGS DIFF FINAL; LYMPH % 42.8 % (9.0-44.0); LYMPHOCYTE # 2.8 TH/MM3 (1.0-4.8); MEAN CORPUSCULAR HEMOGLOBIN 29.8 PG (27.0-34.0); MONO % 6.1 % (0.0-8.0); NEUT % 46.5 % (16.0-70.0); PLATELET COUNT 142 TH/MM3 (150-450); RED BLOOD COUNT 4.38 MIL/MM3 (4.50-5.90); RED CELL DISTRIBUTION WIDTH 13.4 % (11.6-17.2); WHITE BLOOD COUNT 6.5 TH/MM3 (4.0-11.0)
[2017-07-23 08:47] LABS: APTT (PATIENT) 26.9 SEC (24.3-30.1); PROTHROMBIN TIME - PATIENT 11.3 SEC (9.8-11.6)
[2017-07-23 08:57] LABS: BICARBONATE 29.3 MEQ/L (21.0-32.0); MAGNESIUM 1.3 MG/DL (1.5-2.5); POTASSIUM 4.1 MEQ/L (3.5-5.1)
--- NOTE | 2017-07-23 09:06 | RADRPT ---
EXAM DATE/TIME: 07/23/2017 07:54 [facility] COMPARISON: US LEG BILATERAL VENOUS DOPPLER, July 17, 2017, 0:48. INDICATIONS : Bilateral leg swelling. MEDICAL HISTORY : Chronic obstructive pulmonary disease. Arthritis. Asthma. Diabetes. SURGICAL HISTORY : Cardiac stents. ENCOUNTER: Subsequent ACUITY: 1 week PAIN SCORE: 6/10 LOCATION: Bilateral leg. TECHNIQUE: Venous ultrasound of the left and right leg was performed from the inguinal ligament to the proximal calf. Real-time, color Doppler and spectral tracing, compression and augmentation techniques were us ed. FINDINGS: RIGHT LEG: There is normal compressibility of the deep venous system from the inguinal region to popliteal fossa . No echogenic clot is seen in the lumen of the common femoral, femoral, or popliteal veins. However , there are abnormal internal echoes with lack of normal compression and blood flow within the putter in ior tibial vein. There is a normal response of the venous system to proximal and distal augmentation and respiration. LEFT LEG: There is normal compressibility of the deep venous system from the inguinal region to the proximal ca lf. No echogenic clot is seen in the lumen of the common femoral, femoral, popliteal, and posterior tibial veins. There is a normal response of the venous system to proximal and distal augmentation an d respiration. CONCLUSION: 1. There is superficial venous thrombosis of the right posterior tibial vein. The remaining veins of the right lower extremity are patent. 2. There is no DVT in the left lower extremity. Roger Lubin MD on July 23, 2017 at 9:03 Board Certified Radiologist. This report was verified electronically.
--- NOTE | 2017-07-24 09:39 | EKG ---
Date Performed: 07/23/2017 Time Performed: 08:30:19 PTAGE: 61 years EKG: Sinus rhythm Lateral ST changes are nonspecific Compared to prior tracing no significant change NORMAL ECG PREVIOUS TRACING : 07/21/2017 09.12 DOCTOR: Mitch Valentine Interpretating Date/Time 07/24/2017 09:38:53
== END 2017-07-23 10:01 | disposition home or self-care (01) ==
LOC: NEPE 07:05
DX: I82.811 Embolism and thrombosis of superficial veins of right lower extremity (principal); I25.10 Atherosclerotic heart disease of native coronary artery without angina pectoris; Z95.5 Presence of coronary angioplasty implant and graft; E11.40 Type 2 diabetes mellitus with diabetic neuropathy, unspecified
CPT/HCPCS: 71010; 80048; 82550; 83735; 83880; 84484; 85025; 85610; 85730; 93005; 93970

== ENCOUNTER 2017-07-31 00:39 | Emergency (ER) | payer SELFPAY ==
[~2017-07-31] VITALS: Ht 175.3 cm; Wt 65.0 kg
[2017-07-31 00:41] VITALS: BP 146/81; RESP 16; TEMP 97.5; O2SAT 100
--- NOTE | 2017-07-31 00:52 | PD ---
HPI Chief Complaint: Medical Clearance Time Seen by Provider: 00:47 Travel History International Travel<30 days: No Contact w/Intl Traveler<30days: No Traveled to known affect area: No History of Present Illness HPI 61-year-old male resents emergency department for reevaluation of DVT. Patient was diagnosed with an official venous thrombosis one week ago. He has taking aspirin as he typically does. Denies any worsening of symptoms. States that his leg is actually improved. Denies any chest or tightness no difficulty breathing. Patient has not followed up with his primary care provider. [place] any fever or chills. No other symptoms to report. History Past Medical Histgory Hx Cancer: No Social History Alcohol Use: No Tobacco Use: Yes (1/2 ppd) Allergies-Medications (Allergen,Severity, Reaction): Coded Allergies: No Known Allergies (Verified , 07/31/17) Reported Meds & Prescriptions Reported Meds & Active Scripts Active Carefine Pen [place] 31G X 8 mm 31 Gauge X 5/16" Mis Box .ROUTE DIRECTED [employer] Insulin Syringes/ 31G X 5/16" 0.5 ml 31 Gauge X 5/16" Mis Box .ROUTE DIRECTED Trueresult Blood Glucose (Device) System Kit Kit .ROUTE DIRECTED Glucocom Blood Glucose Mo W/Device (Device) 1 Kit Kit Kit .ROUTE DIRECTED Glucocom Test Strips (Blood Glucose Test Strips) 1 Marilee Marilee Ea .ROUTE DIRECTED Novolin 70-30 Inj (Insulin Human Isoph/Insulin Regular) 1,000 Unit/10 Ml Vial 10 Units SQ BID@ Adult Aspirin EC Low Strength (Aspirin) 81 Mg Tabec 81 Mg PO DAILY Lisinopril 10 Mg Tab 10 Mg PO DAILY Pravachol (Pravastatin) 40 Mg Tab 40 Mg PO DAILY Metformin (Metformin HCl) 1,000 Mg Tab 1,000 Mg PO BIDPC With meals Review of Systems Except as stated in HPI: all other systems reviewed are Neg Physical Exam Narrative GENERAL: Well-nourished, well-developed patient in no acute distress SKIN: Focused skin assessment warm/dry. HEAD: Normocephalic. EYES: No scleral icterus. No injection or drainage. NECK: Supple, trachea midline. No JVD or lymphadenopathy. CARDIOVASCULAR: Regular rate and rhythm without murmurs, gallops, or rubs. RESPIRATORY: Breath sounds equal bilaterally. No accessory muscle use. GASTROINTESTINAL: Abdomen soft, non-tender, nondistended. MUSCULOSKELETAL: No cyanosis. Trace edema of the distal right lower extremity. Distal pulses are palpable. Cap refill within normal limits. No erythema. BACK: Nontender without obvious deformity. No CVA tenderness. Data Data Last Documented VS Vital Signs Date Time Temp Pulse Resp B/P (MAP) Pulse Ox O2 Delivery O2 Flow Rate FiO2 07/31/17 00:41 97.5 16 146/81 (102) 100 Room Air MDM Medical Screen Exam Complete: Yes Emergency Medical Condition: No Differential Diagnosis Superficial venous thrombosis Narrative Course 61-year-old male presents to the emergency department requesting additional ultrasound after being diagnosed with a superficial venous thrombosis 1 week ago. Patient states his symptoms have actually improved. Denies any fever or chills. There is trace edema the right lower extremity without any erythema. There is no pain upon palpation of the extremity. This is definitely something that the patient should follow-up outpatient for. I discussed with my attending physician. At this time there are no urgent or emergent needs for medical intervention identified. A medical screening exam was performed: At the time of evaluation the presenting medical condition was determined not to be of an emergent nature. The patient was given the option of receiving additional care, but declined. Patient was given options for additional community resources from which to obtain care. The Patient Has Been advised to seek medical attention for their presenting complaint. The patient has been advised to return to the ER at any time if an emergent condition develops. Primary Impression: Encounter for medical screening examination Condition: Stable Rima Blanchard Jul 31, 2017 00:52
== END 2017-07-31 00:52 | disposition left against medical advice (07) ==
LOC: NEPD 00:39
DX: I82.811 Embolism and thrombosis of superficial veins of right lower extremity (principal)
CPT/HCPCS: 99281